=== PATIENT | female | born 1930 | race Caucasian/White ===

== ENCOUNTER 2016-10-13 14:30 | Outpatient (RCR) | payer MEDICARE ==
[~2016-10-13 14:30] MED LIST: ALBU8.5H2 IH; ASPI-892 PO; ATEN50TA PO; ATOR40TA PO; CALC1TAB38 PO; CEPH500C PO; CITA40TA19 PO; CLOP75TA PO; CTLP20T; GLUC-132 PO; HCT25T; KCL10CCR; LSRT50T PO; LVT.05T PO; NF-LOVAZAC; PRAV80TA2 PO; TRAM50TA2 PO
== END 2016-11-27 | disposition home or self-care (01) ==
LOC: PULM 14:30
PROVIDERS: ATTEND Nurse Practitioner Family
DX: J43.8 Other emphysema (principal); R09.02 Hypoxemia; R06.00 Dyspnea, unspecified; G47.34 Idiopathic sleep related nonobstructive alveolar hypoventilation
CPT/HCPCS: 99211

== ENCOUNTER → 2016-11-09 | Outpatient (CLI) | payer MEDICARE ==
--- NOTE | 2016-11-09 16:18 | Diagnostic Imaging Report ---
PROCEDURE: CT chest without contrast. TECHNIQUE: Multiple contiguous axial images were obtained through the chest without the use of intravenous contrast. INDICATION: Productive cough, hypoxia. Exam compared with study 07/22/2015. FINDINGS: Ascending aortic aneurysmal dilatation has a maximal vessel transverse diameter 4.7 cm, previously 4.5 cm. There is trace amount of fluid within the pericardial sac and superior pericardial recess not appreciably changed. The overall heart size itself unremarkable. The descending aorta is normal in caliber but tortuous in its course. There is no pleural effusion. There is no evidence for a lung mass and no alveolar consolidation. No pneumothorax. No acute chest wall pathology. Visualized upper abdomen reveals dilatation of right renal collecting system and extrarenal pelvis, where that portion of the kidney was included in the [id number] on prior chest CTs performed in 2014 as well as 2012. This showed no obvious change. IMPRESSION: Ascending aortic aneurysmal dilatation measures 2 mm larger than on prior. Trace simple-appearing pericardial fluid stable. No evidence for vessel rupture. Tortuous but nonaneurysmal descending thoracic aorta. No infiltrate or pleural fluid. Right renal collecting system and pelvic dilatation unchanged where seen on prior studies although only partially included in the [id number] at each exam. No adenopathy or lung mass. Dictated by: Dictated on workstation # [id number]
== END ==
LOC: RAD 15:28
PROVIDERS: ATTEND Nurse Practitioner Family
DX: J18.9 Pneumonia, unspecified organism (principal); J43.9 Emphysema, unspecified; J30.9 Allergic rhinitis, unspecified
CPT/HCPCS: 71250

== ENCOUNTER → 2016-12-16 | Outpatient (CLI) | payer MEDICARE ==
--- NOTE | 2016-12-21 10:05 | ECHOCARDIOGRAPHY REPORT ---
PROCEDURE PHYSICIAN: ELIZABETH MOROCHO DATE OF PROCEDURE: 12/16/2016 TWO DIMENSIONAL ECHOCARDIOGRAM REPORT PRIMARY PHYSICIAN: Dr. Zepeda OTHER PHYSICIAN: REFERRING PHYSICIAN: ORDERING PHYSICIAN: Qing Garcia APRN INDICATION FOR THE PROCEDURE: 1. Pulmonary hypertension. 2. Coronary artery disease. 3. Shortness of breath. MEASUREMENTS DERIVED VALUES LV DIAMETER (LAX) NORMALS NORMALS Diastolic 4.3 (3.6-5.2) Eject. Fract. (60%+/-6%) Systolic (2.3-3.9) Diastolic Vol. % Shortening (0.22-0.42) Systolic Vol. Aortic Root 3.5 IVS THICKNESS Diastolic 1.3 (0.6-1.1) LVPW THICKNESS Diastolic 1.3 (0.6-1.1) LA DIAMETER Systolic 3.4 (2.1-3.7) DESCRIPTION: This is a technically difficult study and not ideal for wall motion analysis. Global left ventricular systolic function appears well preserved. Left ventricular ejection fraction is estimated to be 55 to 60%. There appears to be mild concentric left ventricular hypertrophy. Aortic, mitral and tricuspid valve leaflets seem to have good leaflet excursion. Doppler imaging shows trivial tricuspid regurgitation. Pulmonary artery systolic pressure is estimated to be approximately 35 mmHg. There is no Doppler evidence of significant valvular stenosis. There is no evidence of significant intracardiac shunt on this transthoracic echocardiographic study. Inferior vena cava does not appear to be dilated. CONCLUSIONS: 1. Technically difficult study. 2. Normal global left ventricular systolic function with an ejection fraction of 55 to 60%. 3. Mild concentric left ventricular hypertrophy. 4. Trivial tricuspid regurgitation. 5. Pulmonary artery systolic pressure is estimated to be approximately 35 mmHg. 6. Mild diastolic dysfunction of the left ventricle. Job ID: [id number] Dictated Date: 12/21/2016 08:49:12 [employer] Date: 12/21/2016 09:59:41 / lizzy
== END ==
LOC: CARD 09:39
PROVIDERS: ATTEND Nurse Practitioner Family
DX: I27.2 Other secondary pulmonary hypertension (principal); I25.10 Atherosclerotic heart disease of native coronary artery without angina pectoris; I65.23 Occlusion and stenosis of bilateral carotid arteries; R06.09 Other forms of dyspnea
CPT/HCPCS: 93306

== ENCOUNTER 2017-02-21 14:25 | Outpatient (RCR) | payer MEDICARE | END 2017-03-08 | disposition home or self-care (01) | LOC: PULM 14:25 | PROVIDERS: ATTEND Nurse Practitioner Family | DX: J43.8 Other emphysema (principal); R09.02 Hypoxemia; R06.00 Dyspnea, unspecified; G47.34 Idiopathic sleep related nonobstructive alveolar hypoventilation ==

== ENCOUNTER → 2017-05-12 | Outpatient (CLI) | payer MEDICARE ==
--- NOTE | 2017-05-15 19:03 | Diagnostic Imaging Report ---
Bilateral screening mammogram. The current study was also evaluated with a Computer Aided Detection (CAD) system. INDICATION: Screening. No current complaints stated on the questionnaire. COMPARISON: 04/26/16 FINDINGS: The breasts are composed of heterogeneously dense parenchyma which may decrease mammographic sensitivity. There are benign-appearing calcifications seen. Allowing for technique and positional differences, no suspicious change is seen. IMPRESSION: Dense breasts with no definite change. ACR BI-RADS Category 2: Benign findings. Result letter will be mailed to the patient. Note: At least 10% of breast cancer is not imaged by mammography. Dictated by: Dictated on workstation # [id number]
== END ==
LOC: RAD 10:40
PROVIDERS: ATTEND Internal Medicine
DX: Z12.31 Encounter for screening mammogram for malignant neoplasm of breast (principal)
CPT/HCPCS: 77067

== ENCOUNTER → 2018-06-04 | Outpatient (CLI) | payer MEDICARE, MEDICAID ==
--- NOTE | 2018-06-04 13:02 | Diagnostic Imaging Report ---
INDICATION: Abnormal respirations and hypoxemia. TIME OF EXAM: 12:47 p.m. COMPARISON: Correlation is made with prior study from 10/19/2016. FINDINGS: Left convexity thoracic scoliotic curvature is noted. The heart size is stable. The lungs appear clear. No infiltrate or failure is detected. No effusion or pneumothorax is seen. IMPRESSION: No acute cardiopulmonary process is detected. Dictated by: Dictated on workstation # [id number]
== END ==
LOC: RAD 11:56
PROVIDERS: ATTEND Nurse Practitioner Family
DX: J43.9 Emphysema, unspecified (principal)
CPT/HCPCS: 71046

== ENCOUNTER 2018-07-10 13:00 | Outpatient (RCR) | payer MEDICARE, MEDICAID ==
[2018-06-18 13:23] VITALS: BP 122/50
[~2018-07-10] VITALS: Ht 160 cm; Wt 88.0 kg
[2018-07-10 13:00] VITALS: BP 140/80
[2018-07-10 14:00] VITALS: BP 120/70
[2018-07-12 13:00] VITALS: BP 150/60
[2018-07-12 14:00] VITALS: BP 150/75
[2018-07-17 13:00] VITALS: BP 160/60
[2018-07-17 14:00] VITALS: BP 123/70
[2018-07-19 13:00] VITALS: BP 140/80
[2018-07-19 14:00] VITALS: BP 170/60
[2018-07-24 12:45] VITALS: BP 159/89
[2018-07-24 13:55] VITALS: BP 151/49
[2018-07-26 13:25] VITALS: BP 160/85
[2018-07-31 13:00] VITALS: BP 132/90
[2018-07-31 14:00] VITALS: BP 112/68
[2018-08-02 12:55] VITALS: BP 148/50
[2018-08-02 13:58] VITALS: BP 115/50
[2018-08-07 13:00] VITALS: BP 151/60
[2018-08-07 14:00] VITALS: BP 138/84
[2018-08-09 13:00] VITALS: BP 140/84
[2018-08-09 14:00] VITALS: BP 143/60
[2018-08-14 13:00] VITALS: BP 142/80
[2018-08-14 14:00] VITALS: BP 150/60
[2018-08-16 13:00] VITALS: BP 120/40
[2018-08-16 14:00] VITALS: BP 170/50
[2018-08-21 13:00] VITALS: BP 160/70
[2018-08-21 14:00] VITALS: BP 143/58
[2018-08-23 13:00] VITALS: BP 140/70
[2018-08-23 14:00] VITALS: BP 150/90
[2018-08-28 13:00] VITALS: BP 130/90
[2018-08-28 14:00] VITALS: BP 130/80
[2018-08-30 13:00] VITALS: BP 125/60
[2018-08-30 14:00] VITALS: BP 150/90
[2018-09-04 13:00] VITALS: BP 112/78
[2018-09-04 14:00] VITALS: BP 118/70
[2018-09-11 13:00] VITALS: BP 138/60
[2018-09-11 14:00] VITALS: BP 135/60
[2018-09-13 12:50] VITALS: BP 150/80
[2018-09-13 13:52] VITALS: BP 160/60
[2018-09-13 13:54] VITALS: BP 160/60
[2018-09-18 12:50] VITALS: BP 147/82
[2018-09-18 13:50] VITALS: BP 152/89
== END 2018-09-16 | disposition home or self-care (01) ==
LOC: PULM 13:00
PROVIDERS: ATTEND Nurse Practitioner Family
DX: J43.9 Emphysema, unspecified (principal)